=== PATIENT | female | born 1995 | race Caucasian/White ===

== ENCOUNTER 2017-07-02 10:22 | Day surgery (SDC) | payer OTHER ==
[~2017-07-02] VITALS: Ht 165.1 cm; Wt 60.0 kg
[~2017-07-02 10:22] MED LIST: AMOXICILLIN500 MG PO; BENADRYL25 MG PO; CLARITIN,ALAVAR10 MG PO; FLAGYL500 MG PO; FLEXERIL10 MG PO; FLONASE16 G1 BOTH NARES; IRON18 MG PO; LANSOPRAZOLE15 MG PO; MOTRIN600 MG PO; MUCINEX D ER T1 EACH PO; Motrin PO; NAPROSYN500 MG PO; NORCO 5/3251 TABLET PO; PREDNISONE10 M1 PO; PROAIR HFA8.5 GM IH; Percocet 5/325,Endoc PO; TESSALON PERLE100 MG PO; ULTRAM50 MG PO; ZANTAC150 M1 PO; ZANTAC150 MG PO; ZITHROMAX Z-PA250 MG PO; ZOFRAN ODT4 MG PO
[2017-07-02 11:04] VITALS: BP 123/81
[2017-07-02 14:40] VITALS: BP 147/67
[2017-07-02 15:29] VITALS: BP 112/76
== END 2017-07-02 15:43 | disposition home or self-care (01) ==
LOC: SDC 10:22
PROC: 0QSP0ZZ Reposition Left Metatarsal, Open Approach (ICD-10-PCS; principal; 2017-07-02)
DX: M20.12 Hallux valgus (acquired), left foot (principal); J45.909 Unspecified asthma, uncomplicated; K21.9 Gastro-esophageal reflux disease without esophagitis
CPT/HCPCS: J0690; J2250; J3010; S0020